=== PATIENT | female | born 1985 | race Caucasian/White ===

== ENCOUNTER 2021-05-26 17:24 | Emergency (ER) | payer SELFPAY ==
[2021-05-26] MEDS ORDERED: ERYTHROMYCIN OP1 GM EYERT (20:57)
[2021-05-26] MEDS ORDERED: NAPROSYN500 MG PO (20:57)
== END 2021-05-26 21:03 | disposition home or self-care (01) ==
LOC: ER1 17:24
DX: S05.01XA Injury of conjunctiva and corneal abrasion without foreign body, right eye, initial encounter (principal); X58.XXXA Exposure to other specified factors, initial encounter
CPT/HCPCS: 99283

== ENCOUNTER → 2021-07-15 | Outpatient (CLI) | payer BC ==
[~2021-07-15] MED LIST: ERYTHROMYCIN OP1 GM EYERT; NAPROSYN500 MG PO
== END ==
LOC: CATH 06-07 10:00 → EDSTATUS 10:00
DX: R42 Dizziness and giddiness (principal); R55 Syncope and collapse

== ENCOUNTER 2021-09-16 19:24 | Emergency (ER) | payer BC ==
[2021-09-16 20:59] LABS: HEMOGLOBIN 13.8 gm/dl (12.3-15.3); RED BLOOD COUNT 4.54 M/UL (4.00-5.10); WHITE BLOOD COUNT 6.5 K/UL (4.5-11.0)
[2021-09-16 21:27] LABS: BUN/CREATININE RATIO 24 (0-10)
== END 2021-09-17 00:29 | disposition home or self-care (01) ==
LOC: ER1 19:24
PROVIDERS: Physician Assistant Medical
DX: R07.9 Chest pain, unspecified (principal)
CPT/HCPCS: 71045; 80053; 82550; 82553; 83880; 84484; 85025; 93005; 99285

== ENCOUNTER → 2021-11-18 | Outpatient (CLI) | payer BC | LOC: HEART 5 10:54 | DX: R06.02 Shortness of breath (principal); R00.2 Palpitations ==